=== PATIENT | female | born 1985 | race Caucasian/White ===

== ENCOUNTER 2024-04-29 15:57 | Inpatient (IN) | payer MEDICAID ==
[~2024-04-29] VITALS: Ht 160 cm; Wt 93.0 kg
[2024-04-29] MEDS ORDERED: ZOLPIDEM TARTRATE 10 MG TABLET PO PRN (16:15)
[2024-04-29 20:51] VITALS: BP 120/85; PULSE 88; RESP 20; TEMP 98; O2SAT 99
[2024-04-30] MEDS ORDERED: PNEUMOCOCCAL VACCINE POLYVALENT 0.5 ML SYRINGE [PPSV23] IM. ONE (06:15)
[2024-04-30 08:19] LABS: BASOPHILS % (AUTO) 0.6 % (0.0-2.0); EOSINOPHILS % (AUTO) 1.5 % (1.0-6.0); HEMATOCRIT 36.3 % (36-46); HEMOGLOBIN 11.8 g/dL (12.0-16.0); MEAN CORPUSCULAR HEMOGLOBIN 28.7 pg (26.0-34.0); MEAN CORPUSCULAR HGB CONC 32.6 G/dL (31.0-37.0); MEAN CORPUSCULAR VOLUME 88 fL (80-100); MONOCYTES # (AUTO) 0.6 K/uL (0.1-1.0); MONOCYTES % (AUTO) 8.3 % (2.0-9.0); NEUTROPHILS % (AUTO) 59.6 % (40.0-70.0); PLATELET COUNT (AUTO) 132 K/uL (150-450); RED BLOOD CELL COUNT(AUTO) 4.12 MIL/uL (4.00-5.20); RED CELL DISTRIBUTION WIDTH 14.7 % (11.5-14.5); WHITE BLOOD COUNT (AUTO) 6.8 K/uL (4.5-11.0)
[2024-04-30 08:46] VITALS: BP 117/65; PULSE 70; RESP 18; TEMP 97.5; O2SAT 96
[2024-04-30 09:13] LABS: ALANINE AMINOTRANSFERASE 28 U/L (12-78); ALBUMIN 2.6 g/dL (3.4-5.0); ALKALINE PHOSPHATASE 45 U/L (46-116); ANION GAP 8 mmol/L (8-16); ASPARTATE AMINOTRANSFERASE 22 U/L (15-37); BILIRUBIN,TOTAL 0.3 mg/dL (0.1-1.0); CALCIUM, TOTAL 8.6 mg/dL (8.8-10.5); CARBON DIOXIDE 33 mmol/L (22-29); CHLORIDE 105 mmol/L (98-107); CHOL/HDL RATIO 2.3 (3.9-5.7); CHOLESTEROL 121 mg/dL (131-200); CREATININE 0.72 mg/dL (0.60-1.30); FREE T4 (FREE THYROXINE) 1.32 ng/dL (0.76-1.46); GLOMERULAR FILTR. RATE CALC > 60 mL/min (>60); GLUCOSE,RANDOM 87 mg/dL (70-110); HDL CHOLESTEROL 52 mg/dL (40-60); LDL CHOL (CALC.) 64 mg/dL (0-130); POTASSIUM 3.7 mmol/L (3.5-5.1); SODIUM SERUM 146 mmol/L (136-145); T4 (THYROXINE) 7.6 mcg/dL (4.7-13.3); THYROID STIMULATING HORMONE 1.34 uIU/mL (0.36-3.74); TOTAL PROTEIN, SERUM 5.8 g/dL (6.4-8.2); TRIGLYCERIDES 27 mg/dL (15-150); UREA NITROGEN, BLOOD 11 mg/dL (7-18)
[2024-04-30] MEDS ORDERED: ALBUTEROL SULFATE HFA 90 MCG/PUFF 8 GM INHALER IH PRN (10:15)
[2024-04-30] MEDS ORDERED: MAG HYDROX/ALUMINUM HYD/SIMETH ES 30 ML SUSPENSION UDCUP PO PRN (10:15)
[2024-04-30] MEDS ORDERED: MAGNESIUM HYDROXIDE SUSPENSION 30 ML UDCUP PO PRN (10:15)
[2024-04-30] MEDS ORDERED: LOPERAMIDE HCL 2 MG CAPSULE PO PRN (10:15)
[2024-04-30] MEDS ORDERED: DOCUSATE SODIUM 100 MG CAPSULE PO PRN (10:15)
[2024-04-30] MEDS ORDERED: ONDANSETRON HCL 4 MG TABLET PO PRN (10:15)
[2024-04-30] MEDS ORDERED: BENZOCAINE/MENTHOL LOZENGE PO PRN (10:15)
[2024-04-30] MEDS ORDERED: IBUPROFEN 600 MG TABLET PO PRN (10:15)
[2024-04-30] MEDS ORDERED: BACITRACIN 28 GM OINTMENT TP PRN (10:15)
[2024-04-30] MEDS ORDERED: PETROLATUM,WHITE 28 GM JELLY TP PRN (10:15)
[2024-04-30] MEDS ORDERED: CloNIDine HCL 0.1 MG TABLET PO PRN (10:15)
[2024-04-30] MEDS ORDERED: OMEPRAZOLE 20 MG CAPSULE PO PRN (10:15)
[2024-04-30] MEDS ORDERED: ACETAMINOPHEN 325 MG TABLET PO PRN (10:15)
[2024-04-30 20:00] VITALS: BP 122/75; PULSE 68; RESP 17; TEMP 97.9; O2SAT 96
[2024-04-30] MEDS: RisperiDONE 1 MG TABLET PO SCH (21:12)
[2024-05-01 08:52] VITALS: BP 124/87; PULSE 92; RESP 16; TEMP 98.8; O2SAT 100
[2024-05-01 20:38] VITALS: BP 122/78; PULSE 65; RESP 18; TEMP 97.4; O2SAT 97
[2024-05-02 08:39] VITALS: BP 145/92; PULSE 97; RESP 18; TEMP 98.1; O2SAT 96
[2024-05-02] MEDS: LORazepam 2 MG TABLET PO PRN (09:36)
[2024-05-03 08:33] VITALS: BP 104/76; PULSE 81; RESP 17; TEMP 98; O2SAT 95
[2024-05-03 08:51] LABS: APPEARANCE,URINE CLEAR (CLEAR); BILIRUBIN,URINE NEGATIVE (NEGATIVE); COLOR,URINE LIGHT YELLOW (YELLOW); GLUCOSE, URINE (UA) NEGATIVE (NEGATIVE); HCG,QUAL URINE NEGATIVE (NEGATIVE); KETONES,URINE TRACE mg/dL (NEGATIVE); LEUKOCYTE ESTERASE ,URINE SMALL (NEGATIVE); NITRATE,URINE NEGATIVE (NEGATIVE); OCCULT BLOOD,URINE NEGATIVE (NEGATIVE); PH,URINE 6.5 (5.0-8.0); PH,URINE DRUG SCREEN 6.5 (5.0-8.0); PROTEIN,URINE NEGATIVE (NEGATIVE); SPECIFIC GRAVITIY, URINE 1.018 (1.003-1.030); UROBILINOGEN,URINE <=1.0 mg/dL (<=1.0)
[2024-05-03 08:59] LABS: ALCOHOL, URINE DRUG SCREEN NEGATIVE (NEGATIVE); AMPHET/METH SCREEN,URINE NEGATIVE (NEGATIVE); BARBITURATE SCREEN, URINE NEGATIVE (NEGATIVE); BENZODIAZEPINES SCREEN,URINE NEGATIVE (NEGATIVE); CANNABINOID SCREEN,URINE NEGATIVE (NEGATIVE); COCAINE SCREEN,URINE NEGATIVE (NEGATIVE); METHADONE SCREEN, URINE NEGATIVE (NEGATIVE); OPIATE SCREEN,URINE NEGATIVE (NEGATIVE); PHENCYCLIDINE SCREEN,URINE NEGATIVE (NEGATIVE)
[2024-05-03 09:11] LABS: BACTERIA,URINE Few /HPF (None Seen); RBC,URINE 0-2 /HPF (0-2)
[2024-05-03] MEDS: HALOPERIDOL 5 MG TABLET PO PRN (10:56)
[2024-05-03] MEDS: HydrOXYzine PAMOATE 25 MG CAPSULE PO PRN (14:34)
[2024-05-03] MEDS: ESCITALOPRAM OXALATE 10 MG TABLET PO SCH (16:23)
[2024-05-03 20:32] VITALS: BP 125/85; PULSE 79; RESP 18; TEMP 97.3; O2SAT 97
[2024-05-04 08:04] LABS: ANION GAP 8 mmol/L (8-16); CALCIUM, TOTAL 9.2 mg/dL (8.8-10.5); CARBON DIOXIDE 28 mmol/L (22-29); CHLORIDE 102 mmol/L (98-107); GLOMERULAR FILTR. RATE CALC > 60 mL/min (>60); GLUCOSE,RANDOM 91 mg/dL (70-110); POTASSIUM 4.6 mmol/L (3.5-5.1); SODIUM SERUM 138 mmol/L (136-145); UREA NITROGEN, BLOOD 12 mg/dL (7-18)
[2024-05-04 08:21] VITALS: BP 101/63; PULSE 95; RESP 17; TEMP 97.8; O2SAT 95
[2024-05-04 09:25] VITALS: BP 90/65; PULSE 81; RESP 18
[2024-05-04 20:34] VITALS: BP 107/71; PULSE 67; RESP 20; TEMP 97.6; O2SAT 95
[2024-05-05 08:38] VITALS: BP 120/67; PULSE 71; RESP 18; TEMP 97.4; O2SAT 95
[2024-05-05 20:36] VITALS: RESP 16; TEMP 97.3
[2024-05-06 09:07] VITALS: BP 100/67; PULSE 71; RESP 17; TEMP 97.2; O2SAT 96
[2024-05-06] MEDS ORDERED: ESCI-8 PO (11:58)
[2024-05-06] MEDS ORDERED: RISP-31 PO (11:58)
== END 2024-05-06 13:52 | disposition home or self-care (01) | DRG 751 ==
LOC: B2S 16:02
PROVIDERS: ADMIT Psychiatry & Neurology Psychiatry; ATTEND Psychiatry & Neurology Psychiatry
PROC: GZHZZZZ Group Psychotherapy (ICD-10-PCS; principal; 2024-05-03)
DX: F33.3 Major depressive disorder, recurrent, severe with psychotic symptoms (principal); D69.6 Thrombocytopenia, unspecified; E87.0 Hyperosmolality and hypernatremia; E66.9 Obesity, unspecified; R45.851 Suicidal ideations; F41.9 Anxiety disorder, unspecified; K59.00 Constipation, unspecified; G47.00 Insomnia, unspecified; F15.90 Other stimulant use, unspecified, uncomplicated; I10 Essential (primary) hypertension; Z68.36 Body mass index [BMI] 36.0-36.9, adult
CPT/HCPCS: 80048; 80053; 80061; 80307; 81001; 84436; 84439; 84443; 84703; 85025; 86592; 87081; 87086; 87186